=== PATIENT | male | born 1965 | race Caucasian/White ===

== ENCOUNTER 2018-06-16 13:14 | Emergency (ER) | payer BC ==
--- NOTE | 2018-06-16 13:16 | PDOC ---
History of Present Illness - General Chief Complaint: Laceration Stated Complaint: LACERATION TO RIGHT THIGH ABOVE KNEE Time Seen by Provider: 06/16/18 13:16 - History of Present Illness Initial Comments: 06/16/18 13:47 The patient is a 52 year old male with a history of HLD who presents for evaluation of a laceration. 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 The patient denies any other injuries and otherwise denies fevers, chills, SOB, chest pain, nausea, vomiting, abdominal pain, numbness, tingling, weakness, or changes with urination or bowel movements. Past History - Past Medical History Allergies/Adverse Reactions: Allergies Allergy/AdvReac Type Severity Reaction Status Date / Time No Known Allergies Allergy Verified 06/16/18 13:16 Home Medications: Ambulatory Orders LORazepam [Ativan] 1 mg PO HS PRN 06/03/12 Aspirin [ASA -] 81 mg PO DAILY 04/14/13 Cardiac Disorders: Yes HTN: No (runs low blood pressure if anything) Hypercholesterolemia: Yes - Suicide/Smoking/Psychosocial Hx Smoking Status: No Smoking History: Former smoker Number of Cigarettes Smoked Daily: 0 Review of Systems - Review of Systems Comments:: 06/16/18 13:50 Constitutional: No fevers, chills, fatigue, malaise HEENT: No Rhinorrhea, nasal congestion, visual changes Cardiovascular: No chest pain, syncope, palpitations, lightheadedness Respiratory: No Cough, SOB, Hemoptysis, Gastrointestinal: No Abdominal pain, Nausea, Vomiting, Constipation, Diarrhea, Melena Genitourinary: No Dysuria, Frequency, Urgency, Hesitancy, Hematuria, Flank pain Musculoskeletal: No Myalgia, arthralgia Skin: Laceration to the right knee. No rashes, itching, bruising, pallor Neurologic: No Headache, Dizziness, Numbness, Weakness, or Tingling Psychiatric: No Hallucinations. No SI or HI *Physical Exam - Physical Exam Comments: 06/16/18 13:50 General Appearance: Nourished. No Apparent Distress HEENT: No Pharyngeal Erythema, Tonsillar Exudate, Tonsillar Erythema Neck: No Cervical Lymphadenopathy Respiratory/Chest: Lungs Clear, Normal Breath Sounds. No Crackles, Rales, Rhonchi, Wheezing Cardiovascular: Regular Rhythm, Regular Rate. No Murmur, Gallops, Rubs Gastrointestinal/Abdominal: Normal Bowel Sounds, Soft. No Guarding, Rebound, Tenderness Musculoskeletal: No CVA Tenderness Extremity: 1.5cm superficial laceration to the medial proximal aspect of the right knee. Sensation to light touch and temperature intact distally. 2+ dp pulses bilaterally. Full ROM. Normal Capillary Refill Integumentary: Normal Color, Dry, Warm Neurologic: Fully Oriented, Alert, Normal Mood/Affect, Normal Response, Motor Strength 5/5. Procedures - Laceration/Wound Repair Right Medial Proximal Knee Wound Length: to 2.5 cm Wound Explored: clean, no foreign body present Wound's Depth, Shape: superficial, linear Irrigated w/ Saline: Yes Anesthesia: 1% Lidocaine Amount of Anesthetic (ccs): 3 Wound Repaired With: Sutures Suture Size/Type: 4:0, nylon Number of Sutures: 5 Layer Closure: Yes Sterile Dressing Applied: Yes Medical Decision Making - Medical Decision Making 06/16/18 13:51 The patient is a 52 year old male with a history of HLD who presents for evaluation of a laceration. The patient's laceration was repaired with 5 4-0 nylon sutures here in the ED. We updated the patient's tetanus status as well. We discussed proper wound care instructions with the patient as well as the need to return to the ER or his primary care provider to have the sutures removed in 7 days. We discussed the plan and return precautions with the patient who voiced understanding and is agreeable with the plan. *DC/Admit/Observation/Transfer Diagnosis at time of Disposition: Laceration - Discharge Dispostion Disposition: HOME Condition at time of disposition: Stable Decision to Admit order: No - Referrals - Patient Instructions Printed Discharge Instructions: DI for Laceration Repair Additional Instructions: Please return to the ER if you experience concerning or worsening symptoms including worsening pain, fevers, redness, or pus drainage from the wound. Your laceration was repaired with 5 stitches. Your tetanus shot was updated here in the ER as well. You must return to the ER or your primary care provider in 7 days to have your sutures removed. Please keep the wound dry for 24 hours after which you may cleanse it lightly with soap and water. You may apply a light layer of bacitracin as well to the wound. - Post Discharge Activity
[2018-06-16] MEDS ORDERED: DIPHTH,PERTUSS(ACELL),TET 0.5 ML DISP.SYRIN IM ONE (13:19)
[2018-06-16 13:28] VITALS: BP 147/90; PULSE 95; TEMP 97.8; BMI 34.9
--- NOTE | 2018-06-16 13:56 | PDOC ---
Attending Attestation - Resident Resident Name: Rodrick Bahena - ED Attending Attestation I have performed the following: I have examined & evaluated the patient, The case was reviewed & discussed with the resident, I agree w/resident's findings & plan, Exceptions are as noted - HPI HPI: 52 yo M history HL presents with laceration. 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 No other injuries. - Physicial Exam PE: GENERAL: Awake, alert, and fully oriented, in no acute distress HEAD: No signs of trauma EYES: PERRLA, EOMI, sclera anicteric, conjunctiva clear EXTREMITIES: RLE with laceration just proximal to the knee, medial side. No active bleeding. Linear laceration. No FB visualized. Remainder of extremities with normal range of motion, no edema. No clubbing or cyanosis. No cords, erythema, or tenderness NEUROLOGICAL: Cranial nerves II through XII grossly intact. Normal speech, normal gait SKIN: Warm, Dry, normal turgor, no rashes or lesions noted. - Medical Decision Making Laceration irrigated and repaired in ED. Tdap given. Stable for DC home.
== END 2018-06-16 13:55 | disposition home or self-care (01) ==
LOC: FER 13:14
PROC: 0HQHXZZ Repair Right Upper Leg Skin, External Approach (ICD-10-PCS; principal; 2018-06-16)
PROC: 3E0234Z Introduction of Serum, Toxoid and Vaccine into Muscle, Percutaneous Approach (ICD-10-PCS; 2018-06-16)
DX: S71.111A Laceration without foreign body, right thigh, initial encounter (principal); W45.8XXA Other foreign body or object entering through skin, initial encounter; Y93.89 Activity, other specified; Y92.9 Unspecified place or not applicable; Y99.0 Civilian activity done for income or pay; E78.5 Hyperlipidemia, unspecified; Z87.891 Personal history of nicotine dependence; I51.9 Heart disease, unspecified
CPT/HCPCS: 90715; 99282-25

== ENCOUNTER 2018-06-25 13:11 | Emergency (ER) | payer BC ==
--- NOTE | 2018-06-25 13:25 | PDOC ---
Suture Removal/Wound Check HPI - History of Present Illness Chief Complaint: Suture/Staple Removal(Here) Stated Complaint: SUTURE REMOVAL Time Seen by Provider: 06/25/18 13:14 History Source: Yes: Patient Exam Limitations: Yes: No Limitations Treated at: [facility] Date of Last ED visit: 06/16/18 - Previous ED Treatment Type of procedure performed on last visit: Yes: Laceration Repair Tetanus Immunization: Yes: Up to Date Antibiotics Prescribed: No - Onset of Previous Treatment Date of Occurence: 06/16/18 Comment:: 06/25/18 13:26 The patient is a 52M who sustained a laceration to his R thigh after cutting carpet. Past History - Past Medical History Allergies/Adverse Reactions: Allergies Allergy/AdvReac Type Severity Reaction Status Date / Time No Known Allergies Allergy Verified 06/25/18 13:12 Home Medications: Ambulatory Orders LORazepam [Ativan] 1 mg PO HS PRN 06/03/12 Aspirin [ASA -] 81 mg PO DAILY 04/14/13 Cardiac Disorders: Yes COPD: No HTN: No (runs low blood pressure if anything) Hypercholesterolemia: Yes - Immunization History Immunization Up to Date: No - Suicide/Smoking/Psychosocial Hx Smoking Status: No Smoking History: Current every day smoker Have you smoked in the past 12 months: Yes Number of Cigarettes Smoked Daily: 20 Information on smoking cessation initiated: Yes 'Breaking Loose' booklet given: 06/25/18 Hx Alcohol Use: No Drug/Substance Use Hx: No Substance Use Type: Marijuana Suture Removal/Wound Check PE - Physical Exam Laceration/Wound Check Symptoms: reports: None Current Severity Level: None Maximum Severity Level: None Pain Localization: None Location of Laceration/Wound: right: Thigh *Physical Exam - Vital Signs Last Vital Signs Temp Pulse Resp BP Pulse Ox 97.6 F 83 18 150/91 97 06/25/18 13:12 06/25/18 13:12 06/25/18 13:12 06/25/18 13:12 06/25/18 13:12 - Physical Exam General Appearance: Yes: Nourished, Appropriately Dressed Musculoskeletal: positive: Other (Well healed laceration with very mild erythema around stitches.) Medical Decision Making - Medical Decision Making 06/25/18 13:28 The patient is a 52M who presents for suture removal. 5 stitches were removed. Pt denies any sx. Ambulating around ER without problems. Will d/c with PCP f/u as needed. *DC/Admit/Observation/Transfer Diagnosis at time of Disposition: Visit for suture removal - Discharge Dispostion Disposition: HOME Condition at time of disposition: Stable Decision to Admit order: No - Referrals - Patient Instructions Printed Discharge Instructions: DI for Suture Removal Additional Instructions: Please see your primary care doctor as needed. Please return for fever, chills, nausea, vomiting, or drainage from the site. - Post Discharge Activity
[2018-06-25 13:37] VITALS: BP 150/91; PULSE 83; TEMP 97.6; BMI 34.9
== END 2018-06-25 13:32 | disposition home or self-care (01) ==
LOC: FER 13:11
DX: Z48.02 Encounter for removal of sutures (principal)
CPT/HCPCS: 99281-25